=== PATIENT | male | born 1955 | race Caucasian/White ===

== ENCOUNTER 2019-10-21 20:09 | Emergency (ER) | payer MEDICARE, MEDICAID ==
[~2019-10-21] VITALS: Ht 175.3 cm; Wt 77.0 kg
[2019-10-21] MEDS ORDERED: METHYLPREDNISOLONE SOD SUCC 125 MG/2 ML VIAL IV STA (21:20)
[2019-10-21] MEDS ORDERED: ASPIRIN 325MG EC TABLET PO ONE (21:30)
[2019-10-21] MEDS ORDERED: ACETAMINOPHEN 325MG TABLET PO ONE (21:30)
[2019-10-21] MEDS ORDERED: ALBUTEROL 6.7GM HFA INHALER ORI ONE ×3 (21:30)
[2019-10-21] MEDS ORDERED: LEVOFLOXACIN 750MG PREMIX 150 ML IV ONE ×2 (21:30)
[2019-10-21 22:50] LABS: BASOPHILS % 0.4 % (0.0-2.0); CHLORIDE 110 mEq/L (98-107); EOSINOPHILS % 0.8 % (0.0-5.0); HEMATOCRIT. 35.5 % (42.0-52.0); HEMOGLOBIN. 12.2 g/dL (14.0-18.0); LYMPHOCYTES % 10.9 % (20.0-50.0); MEAN CORPUSCULAR HEMOGLOBIN 30.3 pg (28.0-32.0); MEAN CORPUSCULAR VOLUME 88.5 fL (80.0-94.0); MEAN PLATELET VOLUME 7.7 fl (7.4-10.4); MONOCYTES % 8.4 % (2.0-8.0); NEUTROPHILS % 79.5 % (40.0-76.0); PLATELET 241 x1000/uL (130-400); RED BLOOD CELL COUNT 4.01 mill/uL (4.7-6.1); RED CELL DISTRIBUTION WIDTH 15.7 % (11.6-14.6)
[2019-10-21] MEDS ORDERED: POTASSIUM CHLORIDE 20MEQ TABLET SR PO ONE (23:00)
[2019-10-22 08:28] VITALS: BP 156/67
== END 2019-10-22 08:53 | disposition home or self-care (01) ==
LOC: ER 20:09 → CANBEDREQ 10-22 09:51
DX: J44.1 Chronic obstructive pulmonary disease with (acute) exacerbation (principal); I10 Essential (primary) hypertension; Z98.890 Other specified postprocedural states; Z88.0 Allergy status to penicillin
CPT/HCPCS: 36415; 71045; 80053; 83605; 84145; 84484; 85025; 93005; 96374; 99285; J2930